=== PATIENT | female | born 2000 | race American Indian/Alaskan Native ===

== ENCOUNTER 2021-08-05 05:46 | Day surgery (SDC) | payer OTHER ==
[2021-08-05] MEDS ORDERED: ONDANSETRON 4 MG/2 ML INJ IV ONE (06:22)
[2021-08-05] MEDS ORDERED: SODIUM CHLORIDE 0.9% 1000 ML 1,000 ML IV ONE ×2 (06:23→09:56)
--- NOTE | 2021-08-05 06:27 | Emergency Department Report ---
ED General Adult HPI - General Chief complaint: Abdominal Pain Stated complaint: ABDOMINAL PAIN/7 WKS Time Seen by Provider: 08/05/21 06:18 Source: patient Mode of arrival: Wheelchair Limitations: No Limitations - History of Present Illness Initial comments: Patient is 20 years old female 2 para 1, 7 weeks gestation. Patient presented to the emergency room complaining of lower abdominal pain, nausea and vomiting since last night. Patient denied any vaginal bleeding or vaginal discharge. She also denied any fever or chills. Patient denied any abdominal trauma. Severity scale (0 -10): 10 - Related Data Home Medications Medication Instructions Recorded Confirmed Last Taken Vitamin 1 tab PO DAILY 10/30/19 10/30/19 10/30/19 Previous Rx's Medication Instructions Recorded Last Taken Type Ferrous Sulfate [Ferrous Sulfate 324 mg PO BID #60 tablet. 11/03/19 Unknown Rx 324 MG] Ibuprofen [Motrin] 600 mg PO Q6H PRN #60 tablet 11/03/19 Unknown Rx Allergies Allergy/AdvReac Type Severity Reaction Status Date / Time No Known Allergies Allergy Verified 10/30/19 23:10 ED Review of Systems ROS: Stated complaint: ABDOMINAL PAIN/7 WKS Other details as noted in HPI Comment: All other systems reviewed and negative Constitutional: denies: chills, fever Respiratory: denies: cough, shortness of breath, SOB with exertion Cardiovascular: denies: chest pain, palpitations Gastrointestinal: abdominal pain, nausea, vomiting. denies: diarrhea, constipation, hematemesis, melena Genitourinary: urgency Musculoskeletal: denies: back pain Neurological: denies: headache, weakness, numbness, paresthesias, confusion ED Past Medical Hx - Past Medical History Previous Medical History?: No Hx Hypertension: No Hx Diabetes: No Hx Deep Vein Thrombosis: No Hx Renal Disease: No Hx Sickle Cell Disease: No Hx Seizures: No Hx Asthma: No - Surgical History Past Surgical History?: No - Social History Smoking Status: Never Smoker Substance Use Type: Marijuana - Medications Home Medications: Home Medications Medication Instructions Recorded Confirmed Last Taken Type Vitamin 1 tab PO DAILY 10/30/19 10/30/19 10/30/19 History Ferrous Sulfate [Ferrous Sulfate 324 mg PO BID #60 tablet. 11/03/19 Unknown Rx 324 MG] Ibuprofen [Motrin] 600 mg PO Q6H PRN #60 tablet 11/03/19 Unknown Rx ED Physical Exam - General Limitations: No Limitations General appearance: alert, other (Actively vomiting in the emergency room.) - Head Head exam: Present: atraumatic, normocephalic, normal inspection - Eye Eye exam: Present: normal appearance - ENT ENT exam: Present: mucous membranes dry - Neck Neck exam: Present: normal inspection, full ROM. Absent: tenderness, meningismus - Respiratory Respiratory exam: Present: normal lung sounds bilaterally - Cardiovascular Cardiovascular Exam: Present: regular rate, normal rhythm, normal heart sounds - GI/Abdominal GI/Abdominal exam: Present: soft, normal bowel sounds. Absent: distended, tenderness, guarding, rebound, rigid, organomegaly, mass, bruit, pulsatile mass, hernia - Extremities Exam Extremities exam: Present: normal inspection, full ROM, normal capillary refill. Absent: tenderness - Back Exam Back exam: Present: normal inspection, full ROM. Absent: CVA tenderness (R), CVA tenderness (L) - Neurological Exam Neurological exam: Present: alert, oriented X3, CN II-XII intact, normal gait, reflexes normal. Absent: motor sensory deficit - Psychiatric Psychiatric exam: Present: normal mood - Skin Skin exam: Present: warm, intact, normal color ED Course Vital Signs 08/05/21 08/05/21 05:50 10:09 Temperature 98.5 F 97.5 F L Pulse Rate 78 75 Respiratory 15 20 Rate Blood Pressure 103/59 109/63 [Right] O2 Sat by Pulse 100 98 Oximetry ED Medical Decision Making - Lab Data Result diagrams: 08/05/21 06:20 08/05/21 06:34 - Radiology Data Radiology results: report reviewed - Medical Decision Making Patient is 20 years old female 2 para 1, 7 weeks gestation. Patient presented to the emergency room complaining of lower abdominal pain, nausea and vomiting since last night. Patient denied any vaginal bleeding or vaginal discharge. She also denied any fever or chills. Patient denied any abdominal trauma. Patient received normal saline, morphine and Zofran. Patient still complaining of pressure in her pelvic area. Patient received another dose of morphine. Pelvic ultrasound showed possible ruptured right ectopic . I immediately consulted Dr. Alec Skelton, OB on-call. Dr. Skelton is coming down to evaluate the patient. Patient informed Dr. Skelton that she is premature patient. I immediately c onsulted Dr. Flanagan. She stated that she is calling the OR for surgery. Critical Care Time: Yes Critical care time in (mins) excluding proc time.: 35 Critical care attestation.: If time is entered above; I have spent that time in minutes in the direct care of this critically ill patient, excluding procedure time. ED Disposition Clinical Impression: Ruptured ectopic Disposition: ADMITTED INPATIENT Is pt being admited?: Yes Condition: Stable Instructions: Abdominal Pain (ED) Referrals: PRIMARY CARE, [Primary Care Provider] - 3-5 Days
[2021-08-05 06:46] LABS: Basophils % (Auto) 0.5 % (0.0-1.8); Eosinophils # (Auto) 0.4 K/mm3 (0.0-0.4); Eosinophils % (Auto) 5.6 % (0.0-4.3); Hemoglobin 11.3 gm/dl (10.1-14.3); Lymphocytes # (Auto) 2.3 K/mm3 (1.2-5.4); Lymphocytes % (Auto) 36.1 % (13.4-35.0); Mean Corpuscular HGB Conc 32 % (30-34); Mean Corpuscular Volume 81 fl (79-97); Monocytes # (Auto) 0.5 K/mm3 (0.0-0.8); Monocytes % (Auto) 7.3 % (0.0-7.3); Platelet Count 250 K/mm3 (140-440); Red Blood Count 4.33 M/mm3 (3.65-5.03); Red Cell Distribution Width 14.5 % (13.2-15.2)
[2021-08-05 07:26] LABS: Alanine Aminotransferase 7 units/L (7-56); Albumin 3.7 g/dL (3.9-5); Blood Urea Nitrogen 11 mg/dL (7-17); Calcium 8.2 mg/dL (8.4-10.2); Hemolysis Index 4
[2021-08-05 07:45] LABS: BUN/Creatinine Ratio 16
[2021-08-05] MEDS ORDERED: MORPHINE 4 MG/1 ML INJ IV ONE (07:55)
[2021-08-05 07:59] LABS: Amorphous Crystals,Urine 1+; Mucus,Urine FEW /HPF
[2021-08-05 08:32] LABS: Bilirubin,Urine Negative (Negative); Blood,Urine Negative (Negative); Color,Urine Straw (Yellow)
[2021-08-05 08:33] LABS: Protein,Urine <15 mg/dL mg/dL (Negative); Urobilinogen,Urine < 2.0 mg/dL (<2.0)
--- NOTE | 2021-08-05 09:44 | Ultrasound Report ---
ULTRASOUND OBSTETRIC REASON FOR EXAM: Abdominal pain TECHNIQUE: Transabdominal and transvaginal ultrasound was performed to evaluate a first trimester pre gnancy. COMPARISON: None available. FINDINGS: Uterus measures 8.4 x 4.5 x 5.6 cm. Endometrial stripe measures 2.3 cm. There is no discrete IUP iden tified. In the right adnexa, there is a complex thick-walled structure measuring 1.7 x 1.9 x 1.8 cm. This is immediately adjacent to but does not appear to arise from the right ovary. Additional 2.4 cm right ov aric corpus luteum cyst is present. Left ovary is not seen. There is moderate fluid in the cul-de-sac and right adnexa. IMPRESSION: 1. Findings suspicious for right adnexal ectopic . Nonspecific moderate volume free fluid i n the right adnexa and cul-de-sac, may reflect rupture. OB consultation is recommended. 2. No IUP is identified. Findings were discussed with SARAH Verma by phone on 08/05/2021 at 0838 hours. Signer Name: Diogenes Hernandez MD Signed: 08/05/2021 9:39 AM Workstation Name: [id number]
[2021-08-05] MEDS ORDERED: SCOPOLAMINE TRANSDERMAL PATCH 72 HR TD ONE (10:34)
[2021-08-05] MEDS ORDERED: HYDROmorphone 1 MG/1 ML INJ IV PRN ×3 (10:34→15:00)
[2021-08-05] MEDS ORDERED: ONDANSETRON 4 MG/2 ML INJ IV PRN ×2 (10:34→15:00)
[2021-08-05] MEDS ORDERED: BUPIVACAINE/PF (0.5%) 5 MG/1 ML 30 ML VIAL INFILTRATI ONE ×4 (10:43→12:00)
[2021-08-05] MEDS ORDERED: SILVER NITRATE APPLICATOR 1 EA TP ONE (10:43)
[2021-08-05] MEDS ORDERED: SODIUM CHLORIDE 0.9% IRR 1,500 ML BOTTLE IR ONE ×2 (10:51→12:00)
[2021-08-05] MEDS ORDERED: ROCURONIUM 50 MG/5 ML INJ IV ONE (10:57)
[2021-08-05] MEDS ORDERED: propofoL 200 MG/20 ML VIAL IV ONE (10:57)
[2021-08-05] MEDS ORDERED: ONDANSETRON 4 MG/2 ML INJ ONE (10:57)
[2021-08-05] MEDS ORDERED: LIDOCAINE MPF (2%) 20 MG/1 ML VIAL 5 ML ONE (10:57)
[2021-08-05] MEDS ORDERED: fentaNYL 100 MCG/2 ML INJ ONE (10:57)
--- NOTE | 2021-08-05 11:10 | History and Physical Report ---
History of Present Illness Date of examination: 08/05/21 Chief complaint: abdominal pain, History of present illness: Pt is a 20 year old -[place] female LMP ~ 06/12/21 at 7w5d by LMP who presents with worsening abdominal pain over the past two days and findings of no intrauterine , and a complex right adnexal mass, and moderate free fluid in the cul de sac suggestive of ectopic . She has not initiated care for this , nor had an ultrasound prior to the one today. Past History Past Medical History: no pertinent history Past Surgical History: no surgical history Social history: no significant social history - Obstetrical History Expected Date of Delivery: 03/19/22 Actual Gestation: 7 Week(s) 5 Day(s) : 2 Para: 1 Hx # Term Pregnancies: 1 Number of Pregnancies: 0 Spontaneous Abortions: 0 Induced : 0 Number of Living Children: 1 Medications and Allergies Allergies Allergy/AdvReac Type Severity Reaction Status Date / Time No Known Allergies Allergy Verified 10/30/19 23:10 Home Medications Medication Instructions Recorded Confirmed Last Taken Type Vitamin 1 tab PO DAILY 10/30/19 10/30/19 10/30/19 History Ferrous Sulfate [Ferrous Sulfate 324 mg PO BID #60 tablet. 11/03/19 Unknown Rx 324 MG] Ibuprofen [Motrin] 600 mg PO Q6H PRN #60 tablet 11/03/19 Unknown Rx Active Meds: Active Medications Hydromorphone HCl (Hydromorphone 1 Mg/1 Ml Inj) 0.5 mg IV Q10MIN PRN PRN Reason: Pain , Severe (7-10) Stop: 08/05/21 23:00 Lactated Ringer's (Lactated Ringers) 1,000 mls @ 75 mls/hr IV DIRECT ALICE Cefazolin Sodium (Ancef/Sterile Water 2 Gm/20 Ml) 2 gm in 20 mls @ 80 mls/hr IV PREOP NR; Protocol Ondansetron HCl (Ondansetron 4 Mg/2 Ml Inj) 4 mg IV ONCE PRN PRN Reason: Nausea And Vomiting Stop: 08/05/21 16:00 Review of Systems All systems: negative Constitutional: weakness Gastrointestinal: abdominal pain - Vital Signs Vital signs: Vital Signs Temp Pulse Resp BP Pulse Ox 98.5 F 78 15 103/59 100 08/05/21 05:50 08/05/21 05:50 08/05/21 05:50 08/05/21 05:50 08/05/21 05:50 Temp Pulse Resp BP Pulse Ox 97.5 F L 75 20 109/63 98 08/05/21 10:09 08/05/21 10:09 08/05/21 10:09 08/05/21 10:09 08/05/21 10:09 - Physical Exam Breasts: Positive: deferred Abdomen: Positive: soft, tenderness Extremities: Positive: normal Results Result Diagrams: 08/05/21 06:20 08/05/21 06:34 Abnormal lab results 08/05/21 08/05/21 08/05/21 Range/Units 06:20 06:34 06:34 MCH 26 L (28-32) pg Lymph % (Auto) 36.1 H (13.4-35.0) % Eos % (Auto) 5.6 H (0.0-4.3) % Glucose 112 H (65-100) mg/dL Calcium 8.2 L (8.4-10.2) mg/dL Albumin 3.7 L (3.9-5) g/dL HCG, Quant 4013 H (0-4) mIU/mL All other labs normal. Ultrasound: report reviewed Assessment and Plan A: Ruptured Right Ectopic P: Proceed with laparoscopic removal of ectopic and other indicated procedures
[2021-08-05] MEDS ORDERED: LACTATED RINGERS 1,000 ML IV SCH ×2 (11:15→11:30)
[2021-08-05] MEDS ORDERED: oxyCODONE /ACETAMINOPHEN 5-325MG TAB PO PRN ×3 (11:19→14:38)
--- NOTE | 2021-08-05 11:19 | Anesthesia Consultation ---
Anesthesia Consult and Med Hx Date of service: 08/05/21 - Airway Anesthetic Teeth Evaluation: Good ROM Head & Neck: Adequate Mental/Hyoid Distance: Adequate Mallampati Class: Class II Intubation Access Assessment: Probably Good - Pre-Operative Health Status ASA Pre-Surgery Classification: ASA1, Emergency Proposed Anesthetic Plan: General - Pulmonary Hx Smoking: No Hx Respiratory Symptoms: No - Cardiovascular System Hx Hypertension: No - Central Nervous System CVA: No - Endocrine Hx Renal Disease: No Hx Liver Disease: No Hx Insulin Dependent Diabetes: No Hx Non-Insulin Dependent Diabetes: No Hx Thyroid Disease: No - Hematic Hx Anemia: No - Other Systems Hx Obesity: No - Additional Comments Anesthesia Medical History Comments: No hx anesthetic complications. Emergent laparoscopy for possible ruptured ectopic . HD stable, T&S drawn in ED. Anesthetic plan, including possibility of perioperative transfusion, discussed with patient and family at bedside/on the phone per patient request.
--- NOTE | 2021-08-05 11:19 | Anesthesia Day of Surgery ---
Anesthesia Day of Surgery - Day of Surgery Patient Examined: Yes Patient H&P Reviewed: Yes Patient is NPO: Yes
[2021-08-05] MEDS ORDERED: MIDAZOLAM 2 MG/2 ML INJ ONE (11:21)
[2021-08-05] MEDS ORDERED: PHENYLEPHRINE/NS 1,000 MCG/10 ML SYRINGE (OR USE) IV ONE (11:31)
[2021-08-05] MEDS ORDERED: dexAMETHasone 20 MG/5 ML VIAL ONE (11:48)
[2021-08-05] MEDS ORDERED: ceFAZolin/Water 2 GM/20 ML 2 GM/20 ML SYRINGE IV NR (12:00)
[2021-08-05] MEDS ORDERED: SODIUM CHLORIDE 0.9% IRRIG SOLN 2000 ML IR ONE (12:00)
[2021-08-05] MEDS ORDERED: LACTATED RINGERS 2,000 ML ONE (12:23)
[2021-08-05] MEDS ORDERED: NEOSTIGMINE 10MG/10 ML INJ MDV ONE (12:59)
[2021-08-05] MEDS ORDERED: GLYCOPYRROLATE 0.4 MG/2 ML INJ ONE (13:00)
[2021-08-05] MEDS ORDERED: LACTATED RINGERS 1,000 ML ONE (13:05)
--- NOTE | 2021-08-05 13:28 | Operative Report ---
Operative Report Operative Report: Date of Surgery: August 05, 2021 Preoperative Diagnosis: Right ectopic Postoperative Diagnosis: Right ectopic Procedure: Laparoscopic Right Salpingectomy Surgeon: Raine Flanagan MD Anesthesia: GETA Findings: 1) Small mobile anteverted uterus 2) Right ectopic ~ 3 cm 3) Normal appearing uterus, ovaries and left fallopian tube 4) Hemoperitoneum EBL: 1100 mL Urine output: 700 mL, clear at the end of the procedure Specimen: Right fallopian tube containing ectopic to pathology Complications: None. Counts correct x 2 Disposition: Stable to PACU Indication for Procedure: This pt is a 20 year old at ~ 7 wks by LMP with positive test, abdominal pain, no intruterine , and moderate free fluid concerning for ectopic . Operation In Detail: After the risks, benefits, complications and alternatives were explained to the patient, she gave informed consent for the procedure. She was then taken to the operating room and placed in the dorsal supine position with her IV noted to be running well and SCDs in place and functioning. General endotracheal anesthesia was induced without difficulty. The patient was then placed in the dorsal lithotomy position and prepped and draped in a normal sterile fashion, including saucedo catheter placement. A time out was then performed. An exam under anesthesia revealed a small mobile antevereted uterus. A bi-valve speculum was placed in the vagina to visualize the cervix. A single tooth tenaculum was placed on the anterior lip of the cervix for traction. The uterus was sounded to 9 cm. A uterine manipulator was then placed. The speculum and single tooth tenaculum were removed from the vagina atraumatically. The surgeon's gloves were then changed. Attention was then turned to entry into the abdominal cavity. A 5 mm incision was made with an 11 blade in the inferior fold of the umbilicus. The skin was grasped on either side of the umbilicus and tented up. The Veres needle was placed into the peritoneal cavity, confirmed with a saline drop test. The abdomen was then insufflated with CO2 gas to a pressure of 15 mmHg. A 5 mm optical trocar was then placed. An anatomic survey was then performed with findings as indicated above. A second trocar site was created 4 cm superior to the pubic symphysis in the midline measuring 12 mm. An 12 mm trocar was then placed under direct visualization. A third 5 mm trocar was placed in the RLQ under direct visualization, lateral to the rectus muscles. The patient was placed in the Trendelenburg position. A large amount of hemoperitoneum and consolidated clot were evacuated with the suction optical design engineer. The uterus was elevated, and each fallopian tube was followed out to the fimbriae and a right ectopic was noted. The right fallopian tube containing the ectopic was excised using a 5 mm Ligasure device. The tube containing the was then placed in an Endobag, removed through the 12 mm incision and sent to pathology. Surgicel powder was placed along the remaining pedicles. Hemostasis was noted. All instruments were removed from the abdominal cavity atraumatically. Next, the Seng Good device was used to reapproximate the fascia of the 12 mm incision with 0-Vicryl. The pneumoperitoneum was released. The trocars were removed atraumatically. The three incisions were infiltrated with half percent Marcaine, reapproximated with 4-0 Monocryl in a subcuticular fashion and then covered with skin glue. All instruments were then removed atraumatically from the vagina. The saucedo catheter was removed. At this time the procedure was ended. The patient was placed into the dorsal supine position and extubated without difficulty. She was subsequently taken to the PACU in stable condition. All instrument, needle and lap counts were correct 2.
--- NOTE | 2021-08-05 13:35 | Short Stay Summary ---
Short Stay Documentation Date of service: 08/05/21 - History H&P: dictated Social history: no significant social history - Allergies and Medications Current Medications: Allergies No Known Allergies Allergy (Verified 10/30/19 23:10) Home Medications Medication Instructions Recorded Confirmed Last Taken Type Vitamin 1 tab PO DAILY 10/30/19 10/30/19 10/30/19 History Ferrous Sulfate [Ferrous Sulfate 324 mg PO BID #60 tablet. 11/03/19 Unknown Rx 324 MG] Ibuprofen [Motrin] 600 mg PO Q6H PRN #60 tablet 11/03/19 Unknown Rx - Physical exam Breasts: deferred - Brief post op/procedure progress note Date of procedure: 08/05/21 Pre-op diagnosis: Right Ectopic Post-op diagnosis: same Procedure: Laparoscopic right Anesthesia: GETA Findings: 1) Small mobile anteverted uterus 2) Right ectopic ~ 3 cm 3) Normal appearing uterus, ovaries and left fallopian tube 4) Hemoperitoneum Surgeon: JOSEP FLANAGAN Estimated blood loss: other (1100 mL) Pathology: list (right ectopic ) Specimen disposition: to lab Condition: stable - Hospital course Hospital course: This patient underwent laparoscopic right salpingectomy which she tolerated well. She was observed in the post manesthesia unit until she met discharge criteria. She will follow-up in [address] Flanagan in the office. - Disposition Condition at discharge: Stable Disposition: 01 HOME / SELF CARE / HOMELESS - Discharge Diagnoses (1) Ruptured ectopic Status: Acute (2) Postoperative anemia due to acute blood loss Status: Acute Short Stay Discharge Plan Activity: other (Nothing per vagina, no tub baths, no tampons, no intercourse x 4 wks ) Weight Bearing Status: Full Weight Bearing Diet: regular Wound: keep clean and dry Additional Instructions: PELVIC REST -- NOTHING IN VAGINA, NO DOUCHE, NO TAMPONS, NO INTERCOURSE X 4 WEEKS KEEP WOUNDS DRY AND INTACT -- DO NOT RUB SKIN GLUE OFF, ALLOW TO FALL OFF ON ITS OWN TAKE MEDS ORDERED KEEP FOLLOW UP APPOINTMENT IN 1 WEEK YOU MAY REMOVE SCOPOLAMINE PATCH IN 1-3 DAYS, WASH HANDS AFTER HANDLING, IF YOU EXPERIENCE ADVERSE REACTIONS, YOU MAY REMOVE [place] MAY RESUME YOUR REGULAR DIET -- AVOID SPICY OR GREASY FOODS FOR FIRST MEAL DO NOT DRIVE, OPERATE HEAVY EQUIPMENT OR SIGN LEGAL DOCUMENTS X 24 HRS Follow up with: PRIMARY CARE, [Primary Care Provider] - 3-5 Days JOSEP FLANAGAN MD [Staff Physician] - 7 Days Forms: Outpatient Surgery DC Inst. Prescriptions: RX: Ferrous Sulfate [Feosol 325 MG tab] 325 mg PO BID #60 tablet Ibuprofen [Motrin] 800 mg PO Q8HR PRN #30 tablet PRN Reason: Pain, Moderate (4-6) oxyCODONE /ACETAMINOPHEN [Percocet 5/325] 1 tab PO Q6HR PRN #30 tablet PRN Reason: Pain
[2021-08-05] MEDS ORDERED: HYDROmorphone 1 MG/1 ML INJ ONE (13:47)
[2021-08-05 15:09] LABS: Hematocrit 25.9 % (30.3-42.9); Hemoglobin 8.2 gm/dl (10.1-14.3)
--- NOTE | 2021-08-05 16:39 | Post Anesthesia Evaluation ---
- Post Anesthesia Evaluation Patient Participated: Yes Airway Patent: Yes Stable Respiratory Function: Yes Nausea/Vomiting: No Temp > 96.8F: Yes Pain Manageable: Yes Adequeate Hydration: Yes Anesthesia Complications: No Other Comments: Post op H/H reviewed. HD stable, pain controlled, voiding without difficulty.
[2021-08-05 18:38] VITALS: BP 126/70
== END 2021-08-05 16:30 | disposition home or self-care (01) ==
LOC: OR 05:46 → ED 05:46 → EDSTATUS 14:38
PROVIDERS: ATTEND Emergency Medicine
DX: O00.90 Unspecified ectopic pregnancy without intrauterine pregnancy (principal); Z3A.01 Less than 8 weeks gestation of pregnancy; Z79.899 Other long term (current) drug therapy; Z98.890 Other specified postprocedural states
CPT/HCPCS: 36415; 59151; 76801; 76817; 80053; 81001; 84702; 85014; 85018; 85025; 86850; 86900; 86901; 88305; A4217; J1100; J1170; J2250; J2270; J2370; J2405; J2704; J2710; J3010; J7030; J7120

== ENCOUNTER 2021-09-29 16:24 | Emergency (ER) | payer OTHER | END 2021-09-29 16:58 | disposition left against medical advice (07) | LOC: ED 16:24 | DX: R10.9 Unspecified abdominal pain (principal); Z53.21 Procedure and treatment not carried out due to patient leaving prior to being seen by health care provider ==

== ENCOUNTER 2022-04-17 11:15 | Inpatient (IN) | payer OTHER ==
[2022-04-17] MEDS ORDERED: LACTATED RINGERS 1,000 ML ONE ×2 (12:23→15:07)
[2022-04-17 13:34] LABS: Hyaline Casts,Urine 1 /LPF; Mucus,Urine FEW /HPF
[2022-04-17 13:51] LABS: Hematocrit 31.4 % (30.3-42.9); Hemoglobin 9.7 gm/dl (10.1-14.3); Mean Corpuscular HGB Conc 31 % (30-34); Mean Corpuscular Volume 71 fl (79-97); Platelet Count 189 K/mm3 (140-440); Red Blood Count 4.46 M/mm3 (3.65-5.03)
[2022-04-17 13:55] LABS: Alanine Aminotransferase 10 units/L (7-56); Uric Acid 7.7 mg/dL (3.5-7.6)
[2022-04-17 13:57] LABS: Red Cell Distribution Width 27.9 % (13.2-15.2)
[2022-04-17 14:13] LABS: Bilirubin,Urine Negative (Negative); Blood,Urine Large (Negative); Color,Urine Straw (Yellow); Protein,Urine <15 mg/dL mg/dL (Negative); RBC,Urine > 182.0 /HPF (0.0-6.0)
[2022-04-17 14:14] LABS: Urobilinogen,Urine < 2.0 mg/dL (<2.0)
--- NOTE | 2022-04-17 14:25 | Ultrasound Report ---
ULTRASOUND BIOPHYSICAL PROFILE INDICATION / CLINICAL INFORMATION: vaginal bleeding, possible leaking. COMPARISON: None available. FINDINGS: BREATHING MOVEMENT = 0 GROSS BODY MOVEMENT = 2 TONE = 0 QUALITATIVE AMNIOTIC FLUID VOLUME = 2 TOTAL BIOPHYSICAL SCORE = 4/8 AMNIOTIC FLUID INDEX (cm) = 8.2 PRESENTATION: Cephalic. HEART RATE (beats per minute): 129 Additional findings: Anterior, right lateral placenta is free of the os. IMPRESSION: Single live intrauterine with heart rate measuring 129 bpm. Abnormal biophysical prof ile of 4/8 due to limited breathing movement and tone. Close follow-up is recommended. Amniotic fluid index is at the lower limits of normal, measuring 8.2 cm. Signer Name: Diogenes Hernandez MD Signed: 04/17/2022 2:20 PM Workstation Name: [id number]
[2022-04-17] MEDS: BETAMET ACET/BETAMET NA PH 6 MG/ML INJ 5 ML MDV IM SCH (15:24)
[2022-04-17] MEDS ORDERED: fentaNYL 100 MCG/2 ML INJ IV ONE (16:00)
[2022-04-17] MEDS ORDERED: BUTORPHANOL 2 MG/1 ML INJ IV PRN (16:44)
[2022-04-17] MEDS ORDERED: fentaNYL 100 MCG/2 ML INJ IV PRN (16:44)
[2022-04-17] MEDS ORDERED: ePHEDrine SULFATE 50 MG/1 ML INJ IV PRN (16:44)
[2022-04-17] MEDS ORDERED: TERBUTALINE 1 MG/1 ML INJ SUB-Q PRN (16:44)
[2022-04-17] MEDS ORDERED: AMPICILLIN/NS 2 GM/100 ML 2 GM/100 ML BAG IV ONE ×2 (16:44→20:15)
[2022-04-17] MEDS ORDERED: CARBOPROST TROMETHAMINE 250 MCG/1 ML INJ IM PRN (16:44)
[2022-04-17] MEDS ORDERED: LIDOCAINE (2%) 20 MG/1 ML VIAL 20 ML MDV INFILTRATI ONE (16:44)
[2022-04-17] MEDS ORDERED: miSOPROStol 200 MCG TAB PR PRN (16:44)
[2022-04-17] MEDS ORDERED: METHYLERGONOVINE MALEATE 0.2 MG/ML VIAL IM PRN (16:44)
[2022-04-17] MEDS ORDERED: LOPERAMIDE 2 MG CAP PO PRN (16:44)
[2022-04-17] MEDS ORDERED: MINERAL OIL 30 ML ORAL LIQD PO PRN (16:44)
[2022-04-17] MEDS ORDERED: ONDANSETRON 4 MG/2 ML INJ IV PRN (16:44)
[2022-04-17] MEDS ORDERED: OXYTOCIN 10 UNIT/1 ML INJ IM PRN (16:44)
[2022-04-17] MEDS ORDERED: OXYTOCIN DRIP 30 UNITS/500 ML BAG IV SCH (17:00)
--- NOTE | 2022-04-17 17:19 | History and Physical Report ---
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 Presents today to hospital with reports, "I am bleeding and I think my water broke". BPP was 4/8, IRENE was 8.3 and ROM+ was positive and was ctx q 2-4 mins. Reports positive FM. Labs: AB positive, antibody negative; rubella immune; urine culture negative; HBsAg negative; HIV negative; Hep C negative; HSV2 negative; GC/Chlamydia negative; Trichomonas positive (ARTHUR positive on 04/02/22); 1 hr gtt 87; GBS unknown. 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 denies: smoking, alcohol abuse, prescription drug abuse, IV drug use - Obstetrical History Expected Date of Delivery: 05/17/22 Actual Gestation: 35 Week(s) 5 Day(s) : 3 Para: 1 Hx # Term Pregnancies: 0 Number of Pregnancies: 0 Spontaneous Abortions: 1 Induced : 0 Number of Living Children: 1 #1 Infant Gender: Male year: 2[age][birth year] Birthweight: 2.268 kg Method of Delivery: Vaginal Gestational age at delivery: 39 Complications: none Medications and Allergies Allergies Allergy/AdvReac Type Severity Reaction Status Date / Time No Known Allergies Allergy Verified 04/17/22 11:46 Home Medications Medication Instructions Recorded Confirmed Last Taken Type Vitamin 1 tab PO DAILY 10/30/19 04/17/22 10/30/19 History Ferrous Sulfate [Ferrous Sulfate 324 mg PO BID #60 tablet. 11/03/19 04/17/22 Unknown Rx 324 MG] Ibuprofen [Motrin] 600 mg PO Q6H PRN #60 tablet 11/03/19 04/17/22 Unknown Rx Ferrous Sulfate [Feosol 325 MG tab] 325 mg PO BID #60 tablet 08/05/21 04/17/22 Unknown Rx Ibuprofen [Motrin] 800 mg PO Q8HR PRN #30 tablet 08/05/21 04/17/22 Unknown Rx oxyCODONE /ACETAMINOPHEN [Percocet 1 tab PO Q6HR PRN #30 tablet 08/05/21 04/17/22 Unknown Rx 5/325] Active Meds: Active Medications Acetaminophen (Acetaminophen 325 Mg Tab) 650 mg PO Q4H PRN PRN Reason: Pain, Mild (1-3) Betamethasone Acet/Betameth SodPhos (Betamet Acet/Betamet Na Ph 6 Mg/Ml Inj 5 Ml Mdv) 12 mg IM Q24H ALICE Stop: 04/18/22 16:01 Last Admin: 04/17/22 15:24 Dose: 12 mg Butorphanol Tartrate (Butorphanol 2 Mg/1 Ml Inj) 2 mg IV Q2H PRN PRN Reason: Pain , Severe (7-10) Carboprost Tromethamine (Carboprost Tromethamine 250 Mcg/1 Ml Inj) 250 mcg IM ONCE PRN PRN Reason: Uterine Bleeding Ephedrine Sulfate (Ephedrine Sulfate 50 Mg/1 Ml Inj) 10 mg IV Q2M PRN PRN Reason: Hypotension Fentanyl (Fentanyl 100 Mcg/2 Ml Inj) 100 mcg IV Q2H PRN PRN Reason: Pain,Severe (7-10) LABOR PAIN Lactated Ringer's (Lactated Ringers) 1,000 mls @ 125 mls/hr IV DIRECT ALICE Oxytocin/Sodium Chloride (Pitocin/Ns 30 Unit/500ml) 30 units in 500 mls @ 40 mls/hr IV TITR ALICE; Protocol Ampicillin Sodium (Ampicillin/Ns 2 Gm/100 Ml) 2 gm in 100 mls @ 100 mls/hr IV ONCE ONE; Protocol Stop: 04/17/22 17:43 Ampicillin Sodium (Ampicillin/Ns 1 Gm/50 Ml) 1 gm in 50 mls @ 100 mls/hr IV Q4H ALICE; Protocol Labetalol HCl (Labetalol 200 Mg Tab) 200 mg PO BID ALICE Last Admin: 04/17/22 15:21 Dose: 200 mg Lidocaine (Lidocaine (2%) 20 Mg/1 Ml Vial 20 Ml Mdv) 20 ml INFILTRATI ONCE ONE Stop: 04/17/22 16:45 Loperamide HCl (Loperamide 2 Mg Cap) 2 mg PO ONCE PRN PRN Reason: give with Hemabate Methylergonovine Maleate (Methylergonovine Maleate 0.2 Mg/Ml Vial) 0.2 mg IM ONCE PRN PRN Reason: Uterine Bleeding Mineral Oil (Mineral Oil 30 Ml Oral Liqd) 30 ml PO QHS PRN PRN Reason: Constipation Misoprostol (Misoprostol 200 Mcg Tab) 800 mcg FL ONCE PRN PRN Reason: Uterine Bleeding Ondansetron HCl (Ondansetron 4 Mg/2 Ml Inj) 4 mg IV Q8H PRN PRN Reason: Nausea And Vomiting Oxytocin (Oxytocin 10 Unit/1 Ml Inj) 10 unit IM ONCE PRN PRN Reason: Uterine Bleeding Terbutaline Sulfate (Terbutaline 1 Mg/1 Ml Inj) 0.25 mg SUB-Q ONCE PRN PRN Reason: Hyperstimulation/Hypertonicity - Vital Signs Vital signs: Vital Signs Pulse Ox 100 04/17/22 11:27 Temp Pulse Resp BP Pulse Ox 98.7 F 53 L 18 140/92 100 04/17/22 15:16 04/17/22 17:09 04/17/22 15:27 04/17/22 15:23 04/17/22 17:09 - Physical Exam Breasts: Positive: normal Cardiovascular: Regular rate Lungs: Positive: Normal air movement Abdomen: Positive: soft, other (gravid) Vagina: Positive: discharge (vaginal bleeding) Uterus: Positive: enlarged (S<D) - Obstetrical FHR: category 1 Cervical Dilatation: 2 (per RN) Cervical Effacement Percentage: 50 station: -3 Uterine Contraction Pattern: Irregular Uterine Tone Measurement Phase: Resting Uterine Contraction Intensity: Mild Results Result Diagrams: 04/17/22 Unknown 04/17/22 Unknown Abnormal lab results 04/17/22 04/17/22 04/17/22 Range/Units 12:10 12:15 Unknown Hgb 9.7 L (10.1-14.3) gm/dl MCV 71 L (79-97) fl MCH 22 L (28-32) pg RDW 27.9 H (13.2-15.2) % Uric Acid (3.5-7.6) mg/dL Lactate Dehydrogenase (91-180) units/L Urine Blood Large A (Negative) Urine WBC (Auto) 105.0 H (0.0-6.0) /HPF Membranes Rupture Positive A (Negative) 04/17/22 Range/Units Unknown Hgb (10.1-14.3) gm/dl MCV (79-97) fl MCH (28-32) pg RDW (13.2-15.2) % Uric Acid 7.7 H (3.5-7.6) mg/dL Lactate Dehydrogenase 266 H (91-180) units/L Urine Blood (Negative) Urine WBC (Auto) (0.0-6.0) /HPF Membranes Rupture (Negative) All other labs normal. Assessment and Plan - Patient Problems (1) premature rupture of membranes (PPROM) with unknown onset of labor Current Visit: Yes Status: Acute Plan to address problem: Initiate betamethesone Initiate ABT therapy Closely monitor /maternal well-being Pain meds as ordered (2) Gestational hypertension Onset Date: ~04/17/22 Current Visit: Yes Status: Acute Qualifiers: Trimester: third trimester Qualified Code(s): O13.3 - Gestational [-induced] hypertension without significant proteinuria, third trimester Plan to address problem: Labetalol 200 mg po BID (3) Trichomonal cervicitis Current Visit: Yes Status: Acute Plan to address problem: Metronidazole 2 gms po x 1 dose (4) Size of fetus inconsistent with dates in third trimester Current Visit: Yes Status: Acute
[2022-04-17] MEDS ORDERED: metroNIDAZOLE 500 MG TAB PO ONE ×2 (18:00→21:00)
[2022-04-17 18:59] LABS: Hematocrit 33.1 % (30.3-42.9); Hemoglobin 10.4 gm/dl (10.1-14.3)
[2022-04-17] MEDS: AMPICILLIN/NS 1 GM/50 ML 1 GM/50 ML BAG IV SCH (20:30)
[2022-04-18] MEDS: AMPICILLIN/NS 1 GM/50 ML 1 GM/50 ML BAG IV SCH ×4 (04:05→21:30)
--- NOTE | 2022-04-18 08:06 | Ultrasound Report ---
ULTRASOUND OBSTETRIC LIMITED ULTRASOUND BIOPHYSICAL PROFILE INDICATION / CLINICAL INFORMATION: repeat bpp. Clinical Gestational Age (GA) in weeks, days: 35, 6 TECHNIQUE: Transabdominal. COMPARISON: None available. FINDINGS: BREATHING MOVEMENT = 2 GROSS BODY MOVEMENT = 2 TONE = 2 QUALITATIVE AMNIOTIC FLUID VOLUME = 2 TOTAL BIOPHYSICAL SCORE = 8/8 HEART RATE (beats per minute): 118 AMNIOTIC FLUID INDEX (cm) = 7.0 (normal = 7-24 cm) PRESENTATION: Cephalic. ADDITIONAL FINDINGS: None. IMPRESSION: 1. Biophysical Score = 8/8 Signer Name: Merlin Bourgeois DO Signed: 04/18/2022 8:01 AM Workstation Name: [id number]
--- NOTE | 2022-04-18 13:08 | Progress Note ---
Assessment and Plan A: IUP at 35w6d PPROM GBS unknown P: Complete steroid course Begin pitocin induction Ampicillin for GBS prophylaxis Subjective - Subjective Date of service: 04/18/22 Principal diagnosis: IUP at 35w6d, PPROM Interval history: Pt report irregular contractions, but otherwise denies complaints. Patient reports: loss of fluid, movement normal, contractions, no new complaints, no vaginal bleeding Objective - Vital Signs Vital Signs: Vital Signs - 12hr 04/18/22 04/18/22 04/18/22 01:12 01:17 01:22 Temperature Pulse Rate 87 89 77 Respiratory Rate Blood Pressure O2 Sat by Pulse 100 100 100 Oximetry 04/18/22 04/18/22 04/18/22 01:27 01:32 01:37 Temperature Pulse Rate 72 72 77 Respiratory Rate Blood Pressure O2 Sat by Pulse 100 99 99 Oximetry 04/18/22 04/18/22 04/18/22 01:42 01:47 01:52 Temperature Pulse Rate 75 85 74 Respiratory Rate Blood Pressure O2 Sat by Pulse 100 98 98 Oximetry 04/18/22 04/18/22 04/18/22 01:57 02:02 02:07 Temperature Pulse Rate 76 75 73 Respiratory Rate Blood Pressure O2 Sat by Pulse 100 99 99 Oximetry 04/18/22 04/18/22 04/18/22 02:12 02:17 02:22 Temperature Pulse Rate 75 74 80 Respiratory Rate Blood Pressure O2 Sat by Pulse 99 99 99 Oximetry 04/18/22 04/18/22 04/18/22 02:27 02:32 02:37 Temperature Pulse Rate 81 77 71 Respiratory Rate Blood Pressure O2 Sat by Pulse 99 99 98 Oximetry 04/18/22 04/18/22 04/18/22 02:42 02:47 02:52 Temperature Pulse Rate 78 68 76 Respiratory Rate Blood Pressure O2 Sat by Pulse 98 99 98 Oximetry 04/18/22 04/18/22 04/18/22 02:57 03:02 03:05 Temperature Pulse Rate 76 76 100 H Respiratory Rate Blood Pressure O2 Sat by Pulse 98 99 94 Oximetry 04/18/22 04/18/22 04/18/22 03:07 03:12 03:17 Temperature Pulse Rate 73 76 75 Respiratory Rate Blood Pressure O2 Sat by Pulse 100 100 100 Oximetry 04/18/22 04/18/22 04/18/22 03:19 03:22 03:27 Temperature 98.2 F Pulse Rate 61 61 Respiratory Rate Blood Pressure O2 Sat by Pulse 100 100 Oximetry 04/18/22 04/18/22 04/18/22 03:32 03:37 03:42 Temperature Pulse Rate 68 70 63 Respiratory Rate Blood Pressure O2 Sat by Pulse 100 100 100 Oximetry 04/18/22 04/18/22 04/18/22 03:47 03:52 03:57 Temperature Pulse Rate 74 62 66 Respiratory Rate Blood Pressure O2 Sat by Pulse 100 100 100 Oximetry 04/18/22 04/18/22 04/18/22 04:02 04:07 04:12 Temperature Pulse Rate 86 84 73 Respiratory Rate Blood Pressure O2 Sat by Pulse 100 100 100 Oximetry 04/18/22 04/18/22 04/18/22 04:17 04:22 04:27 Temperature Pulse Rate 72 65 70 Respiratory Rate Blood Pressure O2 Sat by Pulse 100 100 100 Oximetry 04/18/22 04/18/22 04/18/22 04:32 04:37 04:42 Temperature Pulse Rate 70 68 69 Respiratory Rate Blood Pressure O2 Sat by Pulse 100 100 100 Oximetry 04/18/22 04/18/22 04/18/22 04:47 04:52 04:57 Temperature Pulse Rate 64 72 66 Respiratory Rate Blood Pressure O2 Sat by Pulse 100 99 100 Oximetry 04/18/22 04/18/22 04/18/22 05:02 05:07 05:12 Temperature Pulse Rate 71 71 71 Respiratory Rate Blood Pressure O2 Sat by Pulse 100 100 100 Oximetry 04/18/22 04/18/22 04/18/22 05:17 05:24 05:29 Temperature Pulse Rate 73 62 90 Respiratory Rate Blood Pressure O2 Sat by Pulse 100 92 99 Oximetry 04/18/22 04/18/22 04/18/22 05:34 05:39 05:44 Temperature Pulse Rate 84 89 92 H Respiratory Rate Blood Pressure O2 Sat by Pulse 98 98 98 Oximetry 04/18/22 04/18/22 04/18/22 05:49 05:50 05:54 Temperature Pulse Rate 87 93 H 79 Respiratory Rate Blood Pressure 116/76 O2 Sat by Pulse 100 100 Oximetry 04/18/22 04/18/22 04/18/22 05:59 06:04 06:09 Temperature Pulse Rate 69 72 78 Respiratory Rate Blood Pressure O2 Sat by Pulse 100 100 99 Oximetry 04/18/22 04/18/22 04/18/22 06:14 06:19 06:24 Temperature Pulse Rate 76 76 78 Respiratory Rate Blood Pressure O2 Sat by Pulse 100 99 99 Oximetry 04/18/22 04/18/22 04/18/22 06:29 06:34 06:39 Temperature Pulse Rate 79 75 80 Respiratory Rate Blood Pressure O2 Sat by Pulse 99 100 100 Oximetry 04/18/22 04/18/22 04/18/22 06:44 06:45 06:49 Temperature Pulse Rate 73 66 76 Respiratory Rate Blood Pressure 123/84 O2 Sat by Pulse 100 100 Oximetry 04/18/22 04/18/22 04/18/22 06:54 06:59 07:04 Temperature Pulse Rate 74 76 76 Respiratory Rate Blood Pressure O2 Sat by Pulse 100 100 100 Oximetry 04/18/22 04/18/22 04/18/22 07:09 07:14 07:19 Temperature Pulse Rate 79 76 78 Respiratory Rate Blood Pressure O2 Sat by Pulse 99 100 99 Oximetry 04/18/22 04/18/22 04/18/22 07:24 07:29 07:34 Temperature Pulse Rate 80 65 64 Respiratory Rate Blood Pressure O2 Sat by Pulse 100 99 98 Oximetry 04/18/22 04/18/22 04/18/22 07:39 07:44 07:49 Temperature Pulse Rate 66 64 66 Respiratory Rate Blood Pressure O2 Sat by Pulse 98 99 100 Oximetry 04/18/22 04/18/22 04/18/22 07:54 07:55 07:59 Temperature Pulse Rate 70 69 63 Respiratory Rate Blood Pressure O2 Sat by Pulse 97 93 100 Oximetry 04/18/22 04/18/22 04/18/22 08:04 08:09 08:14 Temperature Pulse Rate 75 80 68 Respiratory Rate Blood Pressure O2 Sat by Pulse 100 100 100 Oximetry 04/18/22 04/18/22 04/18/22 08:19 08:21 08:24 Temperature Pulse Rate 59 L 77 55 L Respiratory Rate Blood Pressure O2 Sat by Pulse 100 90 100 Oximetry 04/18/22 04/18/22 04/18/22 08:29 08:34 08:39 Temperature Pulse Rate 57 L 58 L 67 Respiratory Rate Blood Pressure O2 Sat by Pulse 100 100 100 Oximetry 04/18/22 04/18/22 04/18/22 08:44 08:49 08:54 Temperature Pulse Rate 73 66 68 Respiratory Rate Blood Pressure O2 Sat by Pulse 98 98 100 Oximetry 04/18/22 04/18/22 04/18/22 08:58 08:59 09:04 Temperature Pulse Rate 87 64 67 Respiratory Rate Blood Pressure O2 Sat by Pulse 93 99 94 Oximetry 04/18/22 04/18/22 04/18/22 09:05 09:09 09:14 Temperature Pulse Rate 68 69 77 Respiratory Rate Blood Pressure O2 Sat by Pulse 90 98 100 Oximetry 04/18/22 04/18/22 04/18/22 09:19 09:24 09:29 Temperature Pulse Rate 61 76 76 Respiratory Rate Blood Pressure O2 Sat by Pulse 100 98 98 Oximetry 04/18/22 04/18/22 04/18/22 09:34 09:39 09:44 Temperature Pulse Rate 77 81 87 Respiratory Rate Blood Pressure O2 Sat by Pulse 98 98 98 Oximetry 04/18/22 04/18/22 04/18/22 09:49 09:54 09:59 Temperature Pulse Rate 72 71 74 Respiratory Rate Blood Pressure O2 Sat by Pulse 100 100 100 Oximetry 04/18/22 04/18/22 04/18/22 10:04 10:09 10:14 Temperature Pulse Rate 86 78 89 Respiratory Rate Blood Pressure O2 Sat by Pulse 100 100 100 Oximetry 04/18/22 04/18/22 04/18/22 10:19 10:24 10:29 Temperature Pulse Rate 86 72 74 Respiratory Rate Blood Pressure O2 Sat by Pulse 99 100 100 Oximetry 04/18/22 04/18/22 04/18/22 10:33 10:34 10:39 Temperature Pulse Rate 90 64 90 Respiratory Rate Blood Pressure O2 Sat by Pulse 94 88 89 Oximetry 04/18/22 04/18/22 04/18/22 10:45 10:50 10:55 Temperature Pulse Rate 64 61 70 Respiratory Rate Blood Pressure O2 Sat by Pulse 98 100 100 Oximetry 04/18/22 04/18/22 04/18/22 11:00 11:05 11:10 Temperature Pulse Rate 69 79 71 Respiratory Rate Blood Pressure O2 Sat by Pulse 100 100 100 Oximetry 04/18/22 04/18/22 04/18/22 11:13 11:14 11:29 Temperature Pulse Rate 80 78 Respiratory Rate Blood Pressure 123/84 O2 Sat by Pulse 91 93 Oximetry 04/18/22 04/18/22 04/18/22 11:31 11:32 11:55 Temperature 99 F Pulse Rate 68 91 H Respiratory 16 Rate Blood Pressure 139/88 O2 Sat by Pulse 98 Oximetry 04/18/22 04/18/22 04/18/22 12:00 12:05 12:10 Temperature Pulse Rate 100 H 89 85 Respiratory Rate Blood Pressure O2 Sat by Pulse 97 99 99 Oximetry 04/18/22 04/18/22 04/18/22 12:15 12:20 12:25 Temperature Pulse Rate 89 91 H 91 H Respiratory Rate Blood Pressure O2 Sat by Pulse 99 98 98 Oximetry 04/18/22 04/18/22 04/18/22 12:30 12:35 12:44 Temperature Pulse Rate 95 H 89 94 H Respiratory Rate Blood Pressure O2 Sat by Pulse 97 98 100 Oximetry 04/18/22 04/18/22 04/18/22 12:49 12:55 12:59 Temperature Pulse Rate 93 H 89 91 H Respiratory Rate Blood Pressure O2 Sat by Pulse 99 99 99 Oximetry 04/18/22 13:05 Temperature Pulse Rate 91 H Respiratory Rate Blood Pressure O2 Sat by Pulse 100 Oximetry - Exam Breasts: deferred Abdomen: Present: soft (gravid, non-tender ) Uterus: Present: normal (gravid ) Uterine Contraction Monitor Mode: External Cervical Dilatation: 2 (per RN ) Uterine Contraction Pattern: Irregular Uterine Tone Measurement Phase: Resting - Labs Labs: Abnormal Labs 04/17/22 04/17/22 04/17/22 12:10 12:15 Unknown Hgb 9.7 L MCV 71 L MCH 22 L RDW 27.9 H Uric Acid Lactate Dehydrogenase Urine Blood Large A Urine WBC (Auto) 105.0 H Membranes Rupture Positive A 04/17/22 Unknown Hgb MCV MCH RDW Uric Acid 7.7 H Lactate Dehydrogenase 266 H Urine Blood Urine WBC (Auto) Membranes Rupture Laboratory Results - last 24 hr 04/17/22 04/17/22 04/17/22 12:10 12:15 12:35 WBC RBC Hgb Hct MCV MCH MCHC RDW Plt Count Creatinine Estimated GFR Uric Acid AST ALT Lactate Dehydrogenase Urine Color Straw Urine Turbidity Cloudy Urine pH 7.0 Ur Specific [place] 1.005 Urine Protein <15 mg/dl Urine Glucose (UA) Negative Urine Ketones Negative Urine Blood Large A Urine Nitrite Negative Ur Reducing Substances Not Reportable Urine Bilirubin Negative Urine Ictotest Not Reportable Urine Urobilinogen < 2.0 Ur Leukocyte Esterase Large Urine WBC (Auto) 105.0 H Urine RBC (Auto) > 182.0 U Epithel Cells (Auto) 5.0 Hyaline Casts 1 Urine Mucus Few Membranes Rupture Positive A Syphilis IgG/IgM Ab SARS-CoV-2 (PCR) Blood Type AB POSITIVE Antibody Screen Negative 04/17/22 04/17/22 04/17/22 12:35 18:16 Unknown WBC 7.2 RBC 4.46 Hgb 10.4 9.7 L Hct 33.1 31.4 MCV 71 L MCH 22 L MCHC 31 RDW 27.9 H Plt Count 189 Creatinine Estimated GFR Uric Acid AST ALT Lactate Dehydrogenase Urine Color Urine Turbidity Urine pH Ur Specific [place] Urine Protein Urine Glucose (UA) Urine Ketones Urine Blood Urine Nitrite Ur Reducing Substances Urine Bilirubin Urine Ictotest Urine Urobilinogen Ur Leukocyte Esterase Urine WBC (Auto) Urine RBC (Auto) U Epithel Cells (Auto) Hyaline Casts Urine Mucus Membranes Rupture Syphilis IgG/IgM Ab Nonreactive SARS-CoV-2 (PCR) Blood Type Antibody Screen 04/17/22 04/18/22 Unknown 09:50 WBC RBC Hgb Hct MCV MCH MCHC RDW Plt Count Creatinine 0.7 Estimated GFR > 60 Uric Acid 7.7 H AST 23 ALT 10 Lactate Dehydrogenase 266 H Urine Color Urine Turbidity Urine pH Ur Specific [place] Urine Protein Urine Glucose (UA) Urine Ketones Urine Blood Urine Nitrite Ur Reducing Substances Urine Bilirubin Urine Ictotest Urine Urobilinogen Ur Leukocyte Esterase Urine WBC (Auto) Urine RBC (Auto) U Epithel Cells (Auto) Hyaline Casts Urine Mucus Membranes Rupture Syphilis IgG/IgM Ab SARS-CoV-2 (PCR) Negative Blood Type Antibody Screen
[2022-04-18] MEDS ORDERED: OXYTOCIN DRIP 30 UNITS/500 ML BAG IV SCH (16:00)
[2022-04-18] MEDS: BETAMET ACET/BETAMET NA PH 6 MG/ML INJ 5 ML MDV IM SCH (16:00)
[2022-04-18] MEDS: LACTATED RINGERS 1,000 ML IV SCH (21:30)
[2022-04-19] MEDS: AMPICILLIN/NS 1 GM/50 ML 1 GM/50 ML BAG IV SCH ×5 (03:35→20:03)
[2022-04-19] MEDS: ACETAMINOPHEN 325 MG TAB PO PRN (03:35)
[2022-04-19] MEDS: LACTATED RINGERS 1,000 ML IV SCH ×2 (06:55→16:48)
--- NOTE | 2022-04-19 11:58 | Progress Note ---
Assessment and Plan A: IUP at 36w0d s/p 2 doses of betamethasone PPROM on Ampicllin for GBS prophylaxis, Prolonged ROM (Rupture on 04/17/22) Trichomonas s/p Flagyl 2g PO during this admission GHTN on Labetalol 200 mg BID P: Discontinue pitocin Allow one regular meal Begin PO cytotec for cervical ripening (25 mcg q 4 hours x 4 doses) Continue ampicillin Closely monitor maternal and status Subjective - Subjective Date of service: 04/19/22 Principal diagnosis: IUP at 36w0d, PPROM, GHTN Interval history: Pt report irregular contractions despite low dose pitocin overnight. Cervix remain unchanged from last exam. Pt asking to eat a meal. Patient reports: loss of fluid, movement normal, contractions, no new complaints, no vaginal bleeding Objective - Vital Signs Vital Signs: Vital Signs - 12hr 04/19/22 04/19/22 04/19/22 00:01 00:06 00:10 Temperature Pulse Rate 114 H 80 75 Blood Pressure O2 Sat by Pulse 98 99 98 Oximetry O2 Sat by Pulse Oximetry [ Throughout] 04/19/22 04/19/22 04/19/22 00:16 00:21 00:26 Temperature Pulse Rate 80 86 92 H Blood Pressure O2 Sat by Pulse 98 99 99 Oximetry O2 Sat by Pulse Oximetry [ Throughout] 04/19/22 04/19/22 04/19/22 00:31 00:36 00:41 Temperature Pulse Rate 90 75 99 H Blood Pressure O2 Sat by Pulse 99 99 99 Oximetry O2 Sat by Pulse Oximetry [ Throughout] 04/19/22 04/19/22 04/19/22 00:46 00:51 00:56 Temperature Pulse Rate 91 H 87 97 H Blood Pressure O2 Sat by Pulse 99 99 100 Oximetry O2 Sat by Pulse Oximetry [ Throughout] 04/19/22 04/19/22 04/19/22 01:01 01:06 01:11 Temperature Pulse Rate 79 81 73 Blood Pressure O2 Sat by Pulse 99 99 99 Oximetry O2 Sat by Pulse Oximetry [ Throughout] 04/19/22 04/19/22 04/19/22 01:16 01:21 01:26 Temperature Pulse Rate 82 84 75 Blood Pressure O2 Sat by Pulse 99 99 99 Oximetry O2 Sat by Pulse Oximetry [ Throughout] 04/19/22 04/19/22 04/19/22 01:31 01:36 01:41 Temperature Pulse Rate 81 83 76 Blood Pressure O2 Sat by Pulse 98 98 99 Oximetry O2 Sat by Pulse Oximetry [ Throughout] 04/19/22 04/19/22 04/19/22 01:46 01:51 01:56 Temperature Pulse Rate 91 H 76 91 H Blood Pressure O2 Sat by Pulse 99 99 98 Oximetry O2 Sat by Pulse Oximetry [ Throughout] 04/19/22 04/19/22 04/19/22 02:00 02:01 02:06 Temperature Pulse Rate 103 H 72 75 Blood Pressure O2 Sat by Pulse 89 96 96 Oximetry O2 Sat by Pulse Oximetry [ Throughout] 04/19/22 04/19/22 04/19/22 02:11 02:19 02:24 Temperature Pulse Rate 77 69 68 Blood Pressure O2 Sat by Pulse 96 97 98 Oximetry O2 Sat by Pulse Oximetry [ Throughout] 04/19/22 04/19/22 04/19/22 02:28 02:29 02:34 Temperature Pulse Rate 60 72 75 Blood Pressure O2 Sat by Pulse 94 98 97 Oximetry O2 Sat by Pulse Oximetry [ Throughout] 04/19/22 04/19/22 04/19/22 02:39 02:44 02:49 Temperature Pulse Rate 78 76 70 Blood Pressure O2 Sat by Pulse 96 97 97 Oximetry O2 Sat by Pulse Oximetry [ Throughout] 04/19/22 04/19/22 04/19/22 02:54 02:59 03:04 Temperature Pulse Rate 71 71 77 Blood Pressure O2 Sat by Pulse 98 99 99 Oximetry O2 Sat by Pulse Oximetry [ Throughout] 04/19/22 04/19/22 04/19/22 03:18 03:19 03:23 Temperature Pulse Rate 84 86 84 Blood Pressure 117/74 O2 Sat by Pulse 99 97 Oximetry O2 Sat by Pulse Oximetry [ Throughout] 04/19/22 04/19/22 04/19/22 03:28 03:30 03:33 Temperature 98.3 F Pulse Rate 72 95 H Blood Pressure O2 Sat by Pulse 97 97 Oximetry O2 Sat by Pulse Oximetry [ Throughout] 04/19/22 04/19/22 04/19/22 03:38 03:43 03:48 Temperature Pulse Rate 67 71 79 Blood Pressure O2 Sat by Pulse 98 98 98 Oximetry O2 Sat by Pulse Oximetry [ Throughout] 04/19/22 04/19/22 04/19/22 03:53 03:58 04:03 Temperature Pulse Rate 77 76 78 Blood Pressure O2 Sat by Pulse 97 97 97 Oximetry O2 Sat by Pulse Oximetry [ Throughout] 04/19/22 04/19/22 04/19/22 04:08 04:13 04:18 Temperature Pulse Rate 69 69 70 Blood Pressure O2 Sat by Pulse 98 99 98 Oximetry O2 Sat by Pulse Oximetry [ Throughout] 04/19/22 04/19/22 04/19/22 04:23 04:28 04:33 Temperature Pulse Rate 74 70 71 Blood Pressure O2 Sat by Pulse 97 97 97 Oximetry O2 Sat by Pulse Oximetry [ Throughout] 04/19/22 04/19/22 04/19/22 04:38 04:43 04:48 Temperature Pulse Rate 75 73 75 Blood Pressure O2 Sat by Pulse 96 96 97 Oximetry O2 Sat by Pulse Oximetry [ Throughout] 04/19/22 04/19/22 04/19/22 04:53 04:58 05:03 Temperature Pulse Rate 73 74 75 Blood Pressure O2 Sat by Pulse 98 98 96 Oximetry O2 Sat by Pulse Oximetry [ Throughout] 04/19/22 04/19/22 04/19/22 05:08 05:13 05:18 Temperature Pulse Rate 71 72 74 Blood Pressure O2 Sat by Pulse 96 97 97 Oximetry O2 Sat by Pulse Oximetry [ Throughout] 04/19/22 04/19/22 04/19/22 05:23 05:28 05:33 Temperature Pulse Rate 69 68 96 H Blood Pressure O2 Sat by Pulse 97 97 98 Oximetry O2 Sat by Pulse Oximetry [ Throughout] 04/19/22 04/19/22 04/19/22 05:38 05:43 05:48 Temperature Pulse Rate 75 74 78 Blood Pressure O2 Sat by Pulse 97 97 97 Oximetry O2 Sat by Pulse Oximetry [ Throughout] 04/19/22 04/19/22 04/19/22 05:53 05:58 06:06 Temperature Pulse Rate 76 81 81 Blood Pressure O2 Sat by Pulse 97 97 96 Oximetry O2 Sat by Pulse Oximetry [ Throughout] 04/19/22 04/19/22 04/19/22 06:11 06:16 06:21 Temperature Pulse Rate 74 62 64 Blood Pressure O2 Sat by Pulse 99 99 98 Oximetry O2 Sat by Pulse Oximetry [ Throughout] 04/19/22 04/19/22 04/19/22 06:26 06:31 06:36 Temperature Pulse Rate 61 62 57 L Blood Pressure O2 Sat by Pulse 99 98 97 Oximetry O2 Sat by Pulse Oximetry [ Throughout] 04/19/22 04/19/22 04/19/22 06:41 06:46 06:51 Temperature Pulse Rate 66 72 56 L Blood Pressure O2 Sat by Pulse 98 98 98 Oximetry O2 Sat by Pulse Oximetry [ Throughout] 04/19/22 04/19/22 04/19/22 06:56 07:01 07:02 Temperature 98.0 F Pulse Rate 57 L 55 L Blood Pressure O2 Sat by Pulse 98 97 Oximetry O2 Sat by Pulse 98 Oximetry [ Throughout] 04/19/22 04/19/22 04/19/22 07:04 07:06 07:11 Temperature Pulse Rate 57 L 60 59 L Blood Pressure 125/70 O2 Sat by Pulse 98 97 Oximetry O2 Sat by Pulse Oximetry [ Throughout] 04/19/22 04/19/22 04/19/22 07:16 07:21 07:26 Temperature Pulse Rate 59 L 67 59 L Blood Pressure O2 Sat by Pulse 98 97 97 Oximetry O2 Sat by Pulse Oximetry [ Throughout] 04/19/22 04/19/22 04/19/22 07:31 07:36 07:41 Temperature Pulse Rate 57 L 59 L 60 Blood Pressure O2 Sat by Pulse 96 95 96 Oximetry O2 Sat by Pulse Oximetry [ Throughout] 04/19/22 04/19/22 04/19/22 07:46 07:51 07:56 Temperature Pulse Rate 63 67 67 Blood Pressure O2 Sat by Pulse 96 95 95 Oximetry O2 Sat by Pulse Oximetry [ Throughout] 04/19/22 04/19/22 04/19/22 07:57 08:01 08:06 Temperature Pulse Rate 69 71 59 L Blood Pressure O2 Sat by Pulse 94 98 97 Oximetry O2 Sat by Pulse Oximetry [ Throughout] 04/19/22 04/19/22 04/19/22 08:11 08:16 08:21 Temperature Pulse Rate 61 62 66 Blood Pressure O2 Sat by Pulse 98 97 98 Oximetry O2 Sat by Pulse Oximetry [ Throughout] 04/19/22 04/19/22 04/19/22 08:26 08:27 08:31 Temperature Pulse Rate 84 71 Blood Pressure O2 Sat by Pulse 98 94 98 Oximetry O2 Sat by Pulse Oximetry [ Throughout] 04/19/22 04/19/22 04/19/22 08:36 08:41 08:46 Temperature Pulse Rate 62 63 67 Blood Pressure O2 Sat by Pulse 97 98 97 Oximetry O2 Sat by Pulse Oximetry [ Throughout] 04/19/22 04/19/22 04/19/22 08:51 08:56 09:01 Temperature Pulse Rate 64 69 76 Blood Pressure O2 Sat by Pulse 97 96 97 Oximetry O2 Sat by Pulse Oximetry [ Throughout] 04/19/22 04/19/22 04/19/22 09:06 09:11 09:16 Temperature Pulse Rate 73 72 68 Blood Pressure O2 Sat by Pulse 97 97 97 Oximetry O2 Sat by Pulse Oximetry [ Throughout] 04/19/22 04/19/22 04/19/22 09:21 09:26 09:30 Temperature Pulse Rate 86 83 86 Blood Pressure 126/70 O2 Sat by Pulse 96 96 Oximetry O2 Sat by Pulse Oximetry [ Throughout] 04/19/22 04/19/22 04/19/22 09:31 09:36 09:52 Temperature 97.8 F Pulse Rate 69 76 Blood Pressure O2 Sat by Pulse 97 97 100 Oximetry O2 Sat by Pulse Oximetry [ Throughout] 04/19/22 04/19/22 04/19/22 09:57 10:02 10:07 Temperature Pulse Rate 79 69 60 Blood Pressure O2 Sat by Pulse 98 98 99 Oximetry O2 Sat by Pulse Oximetry [ Throughout] 04/19/22 04/19/22 04/19/22 10:12 10:17 10:22 Temperature Pulse Rate 59 L 61 70 Blood Pressure O2 Sat by Pulse 99 98 98 Oximetry O2 Sat by Pulse Oximetry [ Throughout] 04/19/22 04/19/22 04/19/22 10:27 10:32 10:37 Temperature Pulse Rate 67 71 68 Blood Pressure O2 Sat by Pulse 99 98 98 Oximetry O2 Sat by Pulse Oximetry [ Throughout] 04/19/22 04/19/22 04/19/22 10:41 10:42 10:47 Temperature Pulse Rate 75 83 61 Blood Pressure 136/86 O2 Sat by Pulse 98 99 Oximetry O2 Sat by Pulse Oximetry [ Throughout] 04/19/22 04/19/22 04/19/22 10:52 10:57 11:02 Temperature Pulse Rate 60 64 69 Blood Pressure O2 Sat by Pulse 98 97 98 Oximetry O2 Sat by Pulse Oximetry [ Throughout] 04/19/22 04/19/22 04/19/22 11:07 11:12 11:17 Temperature Pulse Rate 67 65 78 Blood Pressure O2 Sat by Pulse 98 98 98 Oximetry O2 Sat by Pulse Oximetry [ Throughout] 04/19/22 04/19/22 04/19/22 11:22 11:27 11:32 Temperature Pulse Rate 63 65 69 Blood Pressure 129/80 O2 Sat by Pulse 96 96 98 Oximetry O2 Sat by Pulse Oximetry [ Throughout] 04/19/22 04/19/22 04/19/22 11:37 11:42 11:47 Temperature Pulse Rate 60 64 62 Blood Pressure O2 Sat by Pulse 98 98 98 Oximetry O2 Sat by Pulse Oximetry [ Throughout] 04/19/22 11:52 Temperature Pulse Rate 70 Blood Pressure O2 Sat by Pulse 98 Oximetry O2 Sat by Pulse Oximetry [ Throughout] - Exam Breasts: deferred Abdomen: Present: soft (gravid ). Absent: tenderness Uterus: Present: normal (gravid ) FHR: auscultation normal Uterine Contraction Monitor Mode: External Cervical Dilatation: 1.5 (per RN ) Cervical Effacement Percentage: 50 station: -3 Uterine Contraction Pattern: Irregular Uterine Tone Measurement Phase: Resting Uterine Contraction Intensity: Mild Extremities: normal - Labs Labs: Abnormal Labs 04/17/22 04/17/22 04/17/22 12:10 12:15 Unknown Hgb 9.7 L MCV 71 L MCH 22 L RDW 27.9 H Uric Acid Lactate Dehydrogenase Urine Blood Large A Urine WBC (Auto) 105.0 H Membranes Rupture Positive A 04/17/22 Unknown Hgb MCV MCH RDW Uric Acid 7.7 H Lactate Dehydrogenase 266 H Urine Blood Urine WBC (Auto) Membranes Rupture
[2022-04-19] MEDS: miSOPROStol 25 MCG TAB PO PRN ×3 (14:10→22:46)
[2022-04-20] MEDS: ACETAMINOPHEN 325 MG TAB PO PRN (00:11)
[2022-04-20] MEDS: AMPICILLIN/NS 1 GM/50 ML 1 GM/50 ML BAG IV SCH (02:24)
[2022-04-20] MEDS: miSOPROStol 25 MCG TAB PO PRN (02:24)
--- NOTE | 2022-04-20 05:36 | Anesthesia Consultation ---
Anesthesia Consult and Med Hx Date of service: 04/20/22 - Airway Anesthetic Teeth Evaluation: Poor ROM Head & Neck: Adequate Mental/Hyoid Distance: Adequate Mallampati Class: Class II Intubation Access Assessment: Good - Pulmonary Exam CTA: Yes - Cardiac Exam Cardiac Exam: RRR - Pre-Operative Health Status ASA Pre-Surgery Classification: ASA3 Proposed Anesthetic Plan: Epidural - Pulmonary Hx Smoking: No Hx Asthma: No Hx Respiratory Symptoms: No - Cardiovascular System Hx Hypertension: No - Central Nervous System Hx Seizures: No CVA: No Hx Psychiatric Problems: No - Endocrine Hx Renal Disease: No Hx Liver Disease: No Hx Insulin Dependent Diabetes: No Hx Non-Insulin Dependent Diabetes: No Hx Thyroid Disease: No Hx Hypothyroidism: No Hx Hyperthyroidism: No - Hematic Hx Anemia: Yes Hx Sickle Cell Disease: No - Other Systems Hx Alcohol Use: No Hx Substance Use: No Hx Obesity: No
--- NOTE | 2022-04-20 05:40 | Progress Note ---
Labor Epidural - Labor Epidural Start Time: 04:57 Stop Time: 05:09 Performed by:: JAVIER CHRISTIANSON Procedure: Patient is requesting epidural for labor pain. H&P and labs reviewed. Procedure explained, questions answered, consent obtained. Patient placed in sitting position with monitors applied. Timeout performed immediately before start of procedure. Prep/drape in usual sterile fashion. Skin localized 3 mL 1% lidocaine at L[3]-L[4] interspace. 17-gauge Touhy epidural needle advanced to YUNIER with saline at [6] cm x 1 attempt. No blood/CSF noted via epidural needle. Epidural catheter advanced to [10] cm. Negative aspiration for blood and CSF via catheter, negative response to test dose 3 ml 1.5% lidocaine w/ Epi. Sterile dressing applied followed by tape reinforcement. Patient tolerated procedure well. No immediate complications noted.
--- NOTE | 2022-04-20 06:00 | Procedure Note ---
OB Delivery Note - Delivery Date of Delivery: 04/20/22 Surgeon: JOSEP BRO Estimated blood loss: 500cc - Vaginal Delivery presentation: vertex Delivery position: OA Intrapartum events: PROM->1hr before delivery, abruption, gestational hypertension, decreased FHT variability, uterine atony (Misoprostol 800 mcg per rectum ) Delivery induction: misoprostol Delivery augmentation: pitocin Delivery monitor: external FHT, external uterine Route of delivery: Delivery placenta: spontaneous Delivery cord: nuchal cord (loose, reduced manually ) Episiotomy: none Delivery laceration: 1st degree (hemostatic ) Anesthesia: epidural - Infant A at 1 minute: 8 at 5 minutes: 9 Infant Gender: Male (2250g (4lb 15oz) @ 0534 am)
[2022-04-20] MEDS ORDERED: CALCIUM GLUCONATE 1000 MG/10 ML INJ IV ONE (07:30)
[2022-04-20] MEDS ORDERED: OXYTOCIN DRIP 30 UNITS/500 ML BAG IV SCH (08:00)
[2022-04-20] MEDS ORDERED: miSOPROStol 100 MCG TAB PR PRN (08:00)
[2022-04-20] MEDS ORDERED: ACETAMINOPHEN 325 MG TAB PO PRN (08:00)
[2022-04-20] MEDS ORDERED: MAGNESIUM SULFATE 4 GM/100 ML BAG IV ONE (08:00)
[2022-04-20] MEDS ORDERED: LANOLIN/ZINC/DIMETHICONE (LANSINOH) 7 GM TP PRN ×2 (08:00)
[2022-04-20] MEDS ORDERED: MAGNESIUM SULFATE 40GM/1000ML 40 GM/1,000 ML BAG IV SCH (08:00)
[2022-04-20] MEDS ORDERED: WITCH HAZEL/ GLYCERIN PAD TP PRN (08:00)
[2022-04-20] MEDS ORDERED: ONDANSETRON 4 MG/2 ML INJ IV PRN (08:00)
[2022-04-20] MEDS ORDERED: PROMETHAZINE 25 MG TAB PO PRN (08:00)
[2022-04-20] MEDS ORDERED: PROMETHAZINE 25 MG RECT SUPP PR PRN (08:00)
[2022-04-20] MEDS ORDERED: diphenhydrAMINE 25 MG CAP PO PRN (08:00)
[2022-04-20] MEDS ORDERED: BENZOCAINE/MENTHOL 20/0.5% TOP SPRAY 56 GM TP PRN (08:00)
[2022-04-20] MEDS ORDERED: hydrALAZINE 20 MG/1 ML INJ IV PRN (08:00)
[2022-04-20] MEDS: IBUPROFEN 600 MG TAB PO SCH ×2 (08:22→14:00)
[2022-04-20] MEDS: LACTATED RINGERS 1,000 ML IV SCH ×2 (08:25→23:32)
[2022-04-20] MEDS: FERROUS SULFATE 325 MG TAB PO SCH ×2 (10:16→22:07)
[2022-04-20] MEDS: HYDROcodone/ACETAMINOPHEN 5-325 MG TAB PO PRN (19:42)
[2022-04-20 19:46] LABS: Hematocrit 30.1 % (30.3-42.9); Hemoglobin 9.3 gm/dl (10.1-14.3)
[2022-04-20] MEDS ORDERED: MAGNESIUM HYDROXIDE (MOM) ORAL LIQD UDC PO PRN (22:00)
[2022-04-21] MEDS ORDERED: TETANUS,DIPH,PERTUSS(ACELL) VACCINE 0.5 ML SYRINGE IM ONE (08:00)
[2022-04-21] MEDS ORDERED: MEASLES, MUMPS & RUBELLA 12,500 UNIT/0.5 ML VACCINE SUB-Q ONE (09:00)
--- NOTE | 2022-04-21 11:15 | Post Anesthesia Evaluation ---
- Post Anesthesia Evaluation Patient Participated: Yes Airway Patent: Yes Stable Respiratory Function: Yes Nausea/Vomiting: No Temp > 96.8F: Yes Pain Manageable: Yes Adequeate Hydration: Yes Anesthesia Complications: No Block Receding Appropriately: Yes Patient on Ventilator: No
[2022-04-21] MEDS: HYDROcodone/ACETAMINOPHEN 5-325 MG TAB PO PRN (12:12)
--- NOTE | 2022-04-21 14:01 | Progress Note ---
Assessment and Plan A: PPD#1 s/p at 36 wks secondary to PPROM Severe Preeclampsia s/p magnesium sulfate for 24 hours after delivery P: Discontinue labetalol Start Procardia XL 30 mg daily Continue to monitor clinically Subjective - Subjective Date of service: 04/21/22 Principal diagnosis: IUP at 36w0d, PPROM, Severe Preeclampsia s/p magnesium sulfate Interval history: Pt feels well. She completed 24 hours of magnesium sulfate therapy this morning. She reports decreasing lochia. Patient reports: appetite normal, voiding normally, pain well controlled, ambulating normally [place]: doing well Objective - Vital Signs Latest vital signs: Vital Signs Temp Pulse Resp BP BP Pulse Ox Pulse Ox 04/21/22 07:34 99 04/21/22 07:32 98.1 F 76 16 142/98 142/98 99 04/21/22 07:28 88 90 04/21/22 07:27 76 97 04/21/22 07:22 82 97 04/21/22 07:17 77 96 04/21/22 07:12 91 H 100 04/21/22 07:07 80 100 04/21/22 07:02 77 99 04/21/22 06:57 88 89 04/21/22 06:52 88 98 04/21/22 06:47 93 H 99 04/21/22 06:42 93 H 100 04/21/22 06:37 78 100 04/21/22 06:32 83 100 04/21/22 06:27 78 100 04/21/22 06:22 74 100 04/21/22 06:17 78 100 04/21/22 06:12 73 99 04/21/22 06:07 73 99 04/21/22 06:02 85 99 04/21/22 05:57 99 H 100 04/21/22 05:52 84 127/79 96 04/21/22 05:48 78 93 04/21/22 05:47 77 98 04/21/22 05:42 78 99 04/21/22 05:37 77 100 04/21/22 05:32 73 100 04/21/22 05:27 79 98 04/21/22 05:22 90 97 04/21/22 05:17 78 98 04/21/22 05:12 85 98 04/21/22 05:07 74 100 04/21/22 05:02 77 99 04/21/22 04:57 72 99 04/21/22 04:52 76 128/87 99 04/21/22 04:47 71 99 04/21/22 04:42 76 99 04/21/22 04:37 82 100 04/21/22 04:32 97.9 F 85 18 100 04/21/22 04:25 87 93 04/21/22 04:24 74 94 04/21/22 04:20 77 95 04/21/22 04:19 76 94 04/21/22 04:15 78 95 04/21/22 04:14 77 94 04/21/22 04:10 75 95 04/21/22 04:08 75 94 04/21/22 04:05 73 95 04/21/22 04:01 74 94 04/21/22 04:00 73 95 04/21/22 03:55 69 95 04/21/22 03:52 73 111/78 04/21/22 03:50 74 96 04/21/22 03:45 76 95 04/21/22 03:40 75 96 04/21/22 03:35 75 96 04/21/22 03:30 74 96 04/21/22 03:25 75 97 04/21/22 03:20 76 96 04/21/22 03:15 73 96 04/21/22 03:10 73 98 04/21/22 03:05 76 98 04/21/22 03:00 90 98 04/21/22 02:55 87 99 04/21/22 02:52 91 H 120/79 04/21/22 02:50 84 99 04/21/22 02:45 83 98 04/21/22 02:40 72 97 04/21/22 02:35 75 97 04/21/22 02:30 71 97 04/21/22 02:25 73 99 04/21/22 02:20 74 98 04/21/22 02:15 74 99 04/21/22 02:10 70 100 04/21/22 02:05 69 100 04/21/22 02:00 78 99 04/21/22 01:55 71 96 04/21/22 01:52 68 131/98 04/21/22 01:50 75 96 04/21/22 01:45 74 97 04/21/22 01:40 72 96 04/21/22 01:35 74 96 04/21/22 01:30 75 97 04/21/22 01:25 74 97 04/21/22 01:20 75 97 04/21/22 01:15 73 96 04/21/22 01:10 82 99 04/21/22 01:05 77 99 04/21/22 01:00 77 99 04/21/22 00:55 70 99 04/21/22 00:52 65 156/98 04/21/22 00:50 77 100 04/21/22 00:41 82 99 04/21/22 00:36 89 99 04/21/22 00:31 89 99 04/21/22 00:26 79 99 04/21/22 00:21 77 99 04/21/22 00:16 76 99 04/21/22 00:14 98.1 F 16 100 04/21/22 00:11 75 100 04/21/22 00:06 88 97 04/21/22 00:01 73 96 04/20/22 23:56 74 96 04/20/22 23:52 80 130/89 04/20/22 23:51 77 97 04/20/22 23:46 78 97 04/20/22 23:41 78 98 04/20/22 23:36 71 98 04/20/22 23:31 76 100 04/20/22 23:26 78 97 04/20/22 23:21 80 96 04/20/22 23:16 81 96 04/20/22 23:11 79 97 04/20/22 23:06 85 99 04/20/22 23:01 81 98 04/20/22 22:56 82 99 04/20/22 22:52 77 126/87 22 22:51 76 99 04/20/22 22:46 88 99 22 22:41 82 99 22 22:36 79 99 22 22:31 77 100 22 22:26 78 100 22 22:21 82 98 22 22:16 77 99 04/20/22 22:11 69 100 0722 22:06 85 100 22 22:01 87 113/77 100 22 21:56 75 100 22 21:52 74 113/77 04/20/22 21:51 82 98 04/20/22 21:46 80 100 04/20/22 21:41 78 100 04/20/22 21:36 76 100 04/20/22 21:31 77 99 04/20/22 21:26 82 99 04/20/22 21:21 76 99 04/20/22 21:16 81 98 04/20/22 21:11 83 98 04/20/22 21:06 81 98 04/20/22 21:01 81 98 04/20/22 20:56 75 99 04/20/22 20:52 75 125/91 04/20/22 20:51 78 100 04/20/22 20:46 81 100 04/20/22 20:41 82 100 04/20/22 20:36 78 98 04/20/22 20:31 78 99 04/20/22 20:26 80 96 04/20/22 20:21 78 96 04/20/22 20:16 79 96 04/20/22 20:11 72 96 04/20/22 20:06 78 97 04/20/22 20:01 75 97 04/20/22 19:57 97.9 F 66 16 142/96 100 04/20/22 19:56 71 100 04/20/22 19:45 88 91 04/20/22 19:44 78 97 04/20/22 19:39 85 97 04/20/22 19:34 85 97 04/20/22 19:29 84 97 04/20/22 19:24 85 98 04/20/22 19:19 82 98 04/20/22 19:14 76 98 04/20/22 19:09 82 100 04/20/22 19:07 99 04/20/22 19:04 69 99 04/20/22 18:59 98 H 97 04/20/22 18:54 80 98 04/20/22 18:52 80 122/90 04/20/22 18:49 80 98 04/20/22 18:44 81 98 04/20/22 18:39 80 98 04/20/22 18:34 65 96 04/20/22 18:29 103 H 99 04/20/22 18:24 89 99 04/20/22 18:19 87 99 04/20/22 18:14 86 99 04/20/22 18:09 88 99 04/20/22 18:04 88 99 04/20/22 17:59 87 99 04/20/22 17:54 85 99 04/20/22 17:52 78 132/90 04/20/22 17:49 80 99 04/20/22 17:44 85 100 04/20/22 17:39 87 99 04/20/22 17:34 87 99 04/20/22 17:29 86 99 04/20/22 17:24 83 100 04/20/22 17:19 79 100 04/20/22 17:14 76 100 04/20/22 17:09 87 100 04/20/22 17:04 79 100 04/20/22 16:59 90 100 04/20/22 16:54 83 100 04/20/22 16:52 83 124/85 04/20/22 16:49 83 100 04/20/22 16:44 83 100 04/20/22 16:39 81 100 04/20/22 16:34 90 100 04/20/22 16:30 96 H 93 04/20/22 16:29 96 H 98 04/20/22 16:24 96 H 97 04/20/22 16:23 89 91 04/20/22 16:19 85 99 04/20/22 16:14 84 92 04/20/22 16:09 82 100 04/20/22 16:04 79 99 04/20/22 15:59 79 99 04/20/22 15:54 97.8 F 79 16 100 04/20/22 15:52 76 142/99 04/20/22 15:49 79 99 04/20/22 15:47 82 139/94 04/20/22 15:44 71 100 04/20/22 15:39 80 98 04/20/22 15:34 77 96 04/20/22 15:29 79 99 04/20/22 15:24 91 H 98 04/20/22 15:21 90 94 04/20/22 15:19 84 97 04/20/22 15:14 96 H 98 04/20/22 15:09 92 H 98 04/20/22 15:04 77 100 04/20/22 14:59 85 100 04/20/22 14:54 66 100 04/20/22 14:49 82 100 04/20/22 14:44 76 100 07/24/22 14:39 79 100 04/20/22 14:34 81 99 04/20/22 14:29 81 98 04/20/22 14:24 81 99 04/20/22 14:19 79 98 04/20/22 14:14 83 99 04/20/22 14:09 78 97 04/20/22 14:04 75 99 Intake and Output 04/20/22 04/21/22 04/21/22 22:59 06:59 14:59 Intake Total 1527.5 Output Total 1550 1200 1000 Balance -22.5 -1200 -1000 Intake: IV 1407.5 Lactated Ringers 1,000 ml 1000 @ 125 mls/hr IV DIRECT ALICE Rx#:[id number] MAGNESIUM SULFATE 40GM/ 407.5 1000ML 40 gm In 1,000 ml @ 2 GM/HR 50 mls/hr IV DIRECT ALICE Rx#:[id number] Oral 120 Output: Urine 1550 1200 1000 Void 1550 1200 1000 Other: Total, Intake Amount 120 Total, Output Amount [id number] # Voids Void 1 - Exam Breasts: Present: deferred Abdomen: Present: soft Uterus: Present: fundal height at umbilicus Extremities: Present: normal - Labs Labs: Abnormal lab results 04/20/22 04/20/22 04/20/22 Range/Units 13:48 18:59 18:59 Hgb 9.3 L (10.1-14.3) gm/dl Hct 30.1 L (30.3-42.9) % Magnesium 6.50 H 5.60 H (1.7-2.3) mg/dL 04/21/22 Range/Units 01:10 Hgb (10.1-14.3) gm/dl Hct (30.3-42.9) % Magnesium 4.80 H (1.7-2.3) mg/dL
[2022-04-21] MEDS ORDERED: IBUPROFEN 800 MG TAB PO SCH (14:02)
[2022-04-21] MEDS ORDERED: NIFEdipine XL 30 MG TAB PO SCH (22:00)
[2022-04-21] MEDS: FERROUS SULFATE 325 MG TAB PO SCH (22:28)
[2022-04-22] MEDS: IBUPROFEN 800 MG TAB PO SCH ×2 (05:30→18:58)
[2022-04-22] MEDS ORDERED: NIFEdipine XL 30 MG TAB PO SCH (08:00)
--- NOTE | 2022-04-22 08:57 | Progress Note ---
Assessment and Plan A: PPD#2 s/p at 36wks Severe Pre-eclampsia s/p Mag sulfate P: Continue with routine care with discharge anticipated this af ternoon. Subjective - Subjective Date of service: 04/22/22 Principal diagnosis: IUP at 36w0d, PPROM, Severe Preeclampsia s/p magnesium sulfate Interval history: PPD#2 s/p at 36wks. Patient is feeling well and is ready to go home. She is without complaints and reports no issued with ambulation nor voiding. She also reports decreasing lochia. Patient reports: appetite normal, voiding normally, pain well controlled, ambulating normally [place]: doing well Objective - Vital Signs Latest vital signs: Vital Signs Temp Pulse Resp BP BP Pulse Ox Pulse Ox 04/22/22 05:25 98 04/22/22 04:54 84 128/78 99 04/22/22 03:35 98 04/22/22 01:15 98 04/22/22 00:36 98.1 F 81 18 116/78 100 04/21/22 23:20 98 04/21/22 22:27 98 04/21/22 21:29 65 140/92 98 04/21/22 20:10 98 04/21/22 16:40 97.7 F 69 20 113/76 99 04/21/22 12:00 98.3 F 76 18 146/91 99 98 Intake and Output 04/21/22 04/22/22 04/22/22 23:59 07:59 15:59 Intake Total 800 240 Output Total 900 Balance -100 240 Intake: Oral 800 240 Output: Urine 900 Void 900 Other: Total, Intake Amount 240 120 Total, Output Amount 900 # Voids Void 1 1
--- NOTE | 2022-04-22 08:57 | Discharge Summary ---
Providers - Providers Date of Admission: 04/17/22 16:45 Date of discharge: 04/22/22 Attending physician: GIA CISNEROS 04/20/22 07:20 Consult to Ground [employer] Officer [CONS] Routine Reason For Exam: assistance with , SNS Primary care physician: GIA CISNEROS Hospitalization Reason for admission: IUP - , labor, rupture of membranes, other (Pre-eclampsia) Delivery: Episiotomy: none Laceration: 1st degree (Hemostatic) Other procedures: none complications: none Discharge diagnosis: delivery [place] baby: male Hospital course: Patient presented to the hospital with PROM at 36wks and went on to have a of a viable male . She was also diagnosed with Pre-eclampsia and she received Mag Sulfate for seizure prophylaxis for 24hrs after delivery. Her course was uncomplicated. Condition at discharge: Good Disposition: 01 HOME / SELF CARE / HOMELESS Plan - Discharge Medications Prescriptions: Ferrous Sulfate [Feosol 325 MG tab] 325 mg PO BID #60 tablet Ibuprofen [Motrin] 800 mg PO Q8HR PRN #30 tablet PRN Reason: Pain, Moderate (4-6) NIFEdipine XL [Procardia Xl] 30 mg PO QDAY #30 tablet - Provider Discharge Summary Activity: no sex for 6 weeks, no heavy lifting 4 weeks, no strenuous exercise Diet: routine Instructions: routine Additional instructions: [] Smoking cessation referral if applicable(refer to patient education folder for contact #) [] Refer to [facility] Booklet Call your doctor immediately for: * Fever > 100.5 * Heavy vaginal bleeding ( >1 pad per hour) * Severe persistent headache * Shortness of breath * Reddened, hot, painful area to leg or breast * Drainage or odor from incision. * Keep incision clean and dry at all times and follow doctor's instructions regarding bathing/showering Call the office to schedule your newborns circumcision. Follow-up with [facility] on or Thursday of this week for a blood-pressure check. - Follow up plan Follow up: JOSE FORBES ENVIRONMENTAL CONSTRUCTION ENGINEER [Advanced Practice Nurse] - 14 Days Forms: STI Treatment and Prevention
[2022-04-22] MEDS: FERROUS SULFATE 325 MG TAB PO SCH (09:46)
[2022-04-22 19:51] VITALS: BP 116/84
== END 2022-04-22 20:10 | disposition home or self-care (01) | DRG 774 ==
LOC: TRG 11:15 → APU 11:20 → LD 14:45 → TRG 16:57 → LD 04-19 03:07 → OB 04-21 11:07
PROVIDERS: ADMIT Obstetrics & Gynecology; ATTEND Obstetrics & Gynecology
PROC: 10E0XZZ Delivery of Products of Conception, External Approach (ICD-10-PCS; principal; 2022-04-20)
PROC: 0HQ9XZZ Repair Perineum Skin, External Approach (ICD-10-PCS; 2022-04-20)
PROC: 3E0R3BZ Introduction of Anesthetic Agent into Spinal Canal, Percutaneous Approach (ICD-10-PCS; 2022-04-20)
PROC: 00HU33Z Insertion of Infusion Device into Spinal Canal, Percutaneous Approach (ICD-10-PCS; 2022-04-20)
PROC: 3E0234Z Introduction of Serum, Toxoid and Vaccine into Muscle, Percutaneous Approach (ICD-10-PCS; 2022-04-21)
PROC: 3E0134Z Introduction of Serum, Toxoid and Vaccine into Subcutaneous Tissue, Percutaneous Approach (ICD-10-PCS; 2022-04-21)
DX: O42.913 Preterm premature rupture of membranes, unspecified as to length of time between rupture and onset of labor, third trimester (principal); O98.32 Other infections with a predominantly sexual mode of transmission complicating childbirth; Z37.0 Single live birth; O13.4 Gestational [pregnancy-induced] hypertension without significant proteinuria, complicating childbirth; A59.09 Other urogenital trichomoniasis; Z3A.35 35 weeks gestation of pregnancy; Z20.822 Contact with and (suspected) exposure to COVID-19; O14.14 Severe pre-eclampsia complicating childbirth; O60.14X0 Preterm labor third trimester with preterm delivery third trimester, not applicable or unspecified; O45.93 Premature separation of placenta, unspecified, third trimester; O69.81X0 Labor and delivery complicated by cord around neck, without compression, not applicable or unspecified; O70.0 First degree perineal laceration during delivery; O62.2 Other uterine inertia; Z83.3 Family history of diabetes mellitus; Z23 Encounter for immunization
CPT/HCPCS: 36415; 76815; 76819; 81001; 82565; 83615; 83735; 84112; 84450; 84460; 84550; 85014; 85018; 85027; 86592; 86850; 86900; 86901; 88307; 96374; G0378; J0290; J0702; J2590; J3010; J3475; J7120; U0003